=== PATIENT | male | born 1930 | race Caucasian/White ===

== ENCOUNTER 2016-08-04 12:49 | Emergency (ER) | payer MEDICARE ==
[~2016-08-04] VITALS: Ht 175.3 cm; Wt 100.0 kg
[2016-08-04 12:50] VITALS: BP 151/70; PULSE 74; RESP 16; TEMP 97.5; O2SAT 93
--- NOTE | 2016-08-04 13:32 | PD ---
HPI Chief Complaint: Medication Refill Request Time Seen by Provider: 13:18 Travel History International Travel<30 days: No Contact w/Intl Traveler<30days: No Traveled to known affect area: No History of Present Illness HPI 86-year-old male presents requesting medication refill. The patient has a history of atrial fibrillation and he takes Coumadin on a daily basis, 5 mg. He reports that he ran out of his Coumadin yesterday. [facility] to his sister's cousin's house who lives in the area however never arrived and so presents here requesting refill. He is currently in town from [place] on vacation living in an . He has no acute complaints such as chest pain, shortness of breath, calf swelling, abdominal pain, recent illness. His last INR check was 3 weeks ago and was 2.1. He has no other complaints. PFSH Past Medical History Hx Anticoagulant Therapy: Yes (WARFARIN) Cardiovascular Problems: Yes Social History Alcohol Use: No Tobacco Use: No Allergies-Medications (Allergen,Severity, Reaction): Coded Allergies: No Known Allergies (Unverified , 08/04/16) Reported Meds & Prescriptions Reported Meds & Active Scripts Active Coumadin (Warfarin) 5 Mg Tab 5 Mg PO DAILY Reported Warfarin 5 Mg Tab 5 Mg PO DAILY Hydrochlorothiazide 25 Mg Tab 25 Mg PO DAILY Singulair (Montelukast Sodium) 4 Mg Chew 4 Mg CHEW HS Leila Allergy (Fexofenadine HCl) 180 Mg Tab 180 Mg PO DAILY Review of Systems Except as stated in HPI: all other systems reviewed are Neg Physical Exam Narrative GENERAL: Well-developed well-nourished male in no acute distress SKIN: Warm and dry. HEAD: Atraumatic. Normocephalic. EYES: Pupils equal and round. No scleral icterus. No injection or drainage. ENT: No nasal bleeding or discharge. Mucous membranes pink and moist. NECK: Trachea midline. No JVD. CARDIOVASCULAR: Irregular Regular rate and rhythm. 2/6 systolic murmur best heard rusb. RESPIRATORY: No accessory muscle use. Clear to auscultation. Breath sounds equal bilaterally. GASTROINTESTINAL: Abdomen soft, non-tender, nondistended. Hepatic and splenic margins not palpable. No guarding. MUSCULOSKELETAL: No obvious deformities. No edema. NEUROLOGICAL: Awake and alert. No obvious cranial nerve deficits. Motor grossly within normal limits. Normal speech. Data Data Last Documented VS Vital Signs Date Time Temp Pulse Resp B/P Pulse Ox O2 Delivery O2 Flow Rate FiO2 08/04/16 12:50 97.5 74 16 151/70 93 Room Air Orders Prothrombin Time / Inr (Pt) (08/04/16 13:24) Warfarin (Coumadin) (08/04/16 14:30) Labs Laboratory Tests Test 08/04/16 13:50 Prothrombin Time 15.2 SEC Prothromb Time International 1.4 RATIO Ratio MDM Medical Decision Making Medical Screen Exam Complete: Yes Emergency Medical Condition: Yes Medical Record Reviewed: Yes Interpretation(s) INR 1.5 Differential Diagnosis Medication refill, subtherapeutic INR, supratherapeutic INR Narrative Course 86-year-old male with history of atrial fibrillation on Coumadin here on vacation from [place] presents requesting refill of his Coumadin, out of Coumadin since yesterday. No acute complaints. We'll check INR. INR subtherapeutic at 1.5, he'll be given a 7.5 mg dose of Coumadin here and discharged with a 30 day supply of 5 mg Coumadin. He plans on following up [facility] to recheck his INR while he was down here. Diagnosis Primary Impression: Medication refill Additional Instructions: Monitor your INR while on vacation. Return for any acute emergent medical conditions. Med/Other Pt SpecificInfo: Prescription(s) given Scripts Warfarin (Coumadin)5 Mg Tab5 Mg PO DAILY #30 TAB Ref 0 Prov:Emmett Almonte MD 08/04/16 Disposition: 01 DISCHARGE HOME Condition: Stable Jacques Pedroza Aug 04, 2016 13:32
[2016-08-04] MEDS ORDERED: MONT4CHW2 CHEW (13:42)
[2016-08-04] MEDS ORDERED: FEXO15TA PO (13:42)
[2016-08-04] MEDS ORDERED: HYDR25TA5 PO (13:42)
[2016-08-04] MEDS ORDERED: WARF-23 PO (13:44)
[2016-08-04 14:10] LABS: INTERNATIONAL NORMALIZED RATIO 1.4 RATIO; PROTHROMBIN TIME - PATIENT 15.2 SEC (9.8-11.6)
[2016-08-04] MEDS ORDERED: COUM5TAB PO (14:18)
[2016-08-04] MEDS ORDERED: WARFARIN SOD 7.5 MG TAB PO ONE (14:30)
== END 2016-08-04 15:23 | disposition home or self-care (01) ==
LOC: NEPC 12:49
DX: I48.91 Unspecified atrial fibrillation (principal); Z76.0 Encounter for issue of repeat prescription; Z79.01 Long term (current) use of anticoagulants
CPT/HCPCS: 85610; 99282